=== PATIENT | female | born 1995 | race Hispanic/Latino ===

== ENCOUNTER 2019-11-05 15:18 | Emergency (ER) | payer OTHER ==
[2019-11-05] MEDS ORDERED: KETOROLAC TROMETHAMINE 30MG/ML ONE (16:04)
[2019-11-05] MEDS ORDERED: SODIUM CHLORIDE 0.9% 1000ML 1,000 ML IV ONE (16:04)
[2019-11-05] MEDS ORDERED: ONDANSETRON HCL 4 MG/2 ML VIAL ONE (16:04)
[2019-11-05 16:12] LABS: BASOPHILS % (AUTO) 0.4 % (0.0-5.0); EOSINOPHILS % (AUTO) 1.2 % (0.0-8.0); HEMATOCRIT 34.2 % (36-48); LYMPHOCYTES % (AUTO) 19.1 % (21.0-51.0); MEAN CORPUSCULAR HEMOGLOBIN 29.3 pg (27.0-33.0); MEAN CORPUSCULAR VOLUME 88.6 fL (79-99); MONOCYTES % (AUTO) 5.3 % (3.0-13.0); NEUTROPHILS % (AUTO) 73.7 % (40.0-77.0); PLATELET COUNT (AUTO) 317 K/uL (130-400); RED BLOOD CELL COUNT(AUTO) 3.86 MIL/uL (4.00-5.50); RED CELL DISTRIBUTION WIDTH 13.2 % (11.0-15.5); WHITE BLOOD COUNT (AUTO) 9.1 K/uL (4.8-10.8)
[2019-11-05 16:28] LABS: APPEARANCE,URINE Turbid (CLEAR); BILIRUBIN,URINE Negative (NEGATIVE); COLOR,URINE Dark Yellow (YELLOW); GLUCOSE, URINE (UA) Negative (NEGATIVE); KETONES,URINE >=80 mg/dL (NEGATIVE); LEUKOCYTE ESTERASE ,URINE Trace (NEGATIVE); NITRATE,URINE Negative (NEGATIVE); OCCULT BLOOD,URINE Negative (NEGATIVE); PH,URINE 7.5 (5.0-8.0); PROTEIN,URINE Trace mg/dL (NEGATIVE)
[2019-11-05 16:29] LABS: HCG,QUAL RESULT POSITIVE (NEGATIVE)
[2019-11-05 16:36] LABS: AMPHET/METH SCREEN,URINE NEGATIVE (NEGATIVE); BARBITURATE SCREEN, URINE NEGATIVE (NEGATIVE); BENZODIAZEPINES SCREEN,URINE NEGATIVE (NEGATIVE); CANNABINOID SCREEN,URINE POSITIVE (NEGATIVE); COCAINE SCREEN,URINE NEGATIVE (NEGATIVE); OPIATE SCREEN,URINE NEGATIVE (NEGATIVE); PHENCYCLIDINE SCREEN,URINE NEGATIVE (NEGATIVE)
[2019-11-05 16:44] LABS: CREATININE 0.5 mg/dL (0.5-1.5); POTASSIUM 3.7 mmol/L (3.5-5.1)
[2019-11-05 16:45] LABS: AMORPHOUS SEDIMENT,UR Many /LPF (None Seen); MUCUS,URINE Many LPF (None Seen); RBC,URINE None Seen /HPF (0-1)
[2019-11-05 16:46] LABS: BACTERIA,URINE Few /HPF (None Seen)
[2019-11-05 16:54] LABS: ALBUMIN 3.4 g/dL (3.5-5.0); BILIRUBIN,DIRECT 0.1 mg/dL (0.0-0.3); BILIRUBIN,TOTAL 0.3 mg/dL (0.2-1.0); TOTAL PROTEIN, SERUM 7.3 g/dL (6.0-8.3)
== END 2019-11-05 19:06 | disposition home or self-care (01) ==
LOC: EDH 15:18
DX: O26.891 Other specified pregnancy related conditions, first trimester (principal); R55 Syncope and collapse; O21.9 Vomiting of pregnancy, unspecified; Z3A.10 10 weeks gestation of pregnancy
CPT/HCPCS: 36415; 76801; 80048; 80076; 80305; 81001; 81025; 82550; 83690; 84702; 85025; 93005; 96361; 96374; 99285; J1885; J2405; J7030

== ENCOUNTER 2020-05-22 22:00 | Observation (INO) | payer MEDICAID ==
[~2020-05-22] VITALS: Ht 157.5 cm; Wt 67.6 kg
[2020-05-22 22:33] LABS: APPEARANCE,URINE Clear (CLEAR); BILIRUBIN,URINE Negative (NEGATIVE); COLOR,URINE Yellow (YELLOW); GLUCOSE, URINE (UA) Negative (NEGATIVE); KETONES,URINE Negative (NEGATIVE); LEUKOCYTE ESTERASE ,URINE Moderate (NEGATIVE); NITRATE,URINE Negative (NEGATIVE); OCCULT BLOOD,URINE Negative (NEGATIVE); PH,URINE 7.5 (5.0-8.0); PROTEIN,URINE Negative (NEGATIVE)
[2020-05-22 22:53] LABS: RBC,URINE 0-1 /HPF (0-1)
[2020-05-22 22:54] LABS: BACTERIA,URINE Rare /HPF (None Seen)
[2020-05-22 23:05] VITALS: BP 107/71
[2020-05-22 23:27] LABS: AMPHET/METH SCREEN,URINE NEGATIVE (NEGATIVE); BARBITURATE SCREEN, URINE NEGATIVE (NEGATIVE); BENZODIAZEPINES SCREEN,URINE NEGATIVE (NEGATIVE); CANNABINOID SCREEN,URINE NEGATIVE (NEGATIVE); COCAINE SCREEN,URINE NEGATIVE (NEGATIVE); OPIATE SCREEN,URINE NEGATIVE (NEGATIVE); PHENCYCLIDINE SCREEN,URINE NEGATIVE (NEGATIVE)
== END 2020-05-23 01:10 | disposition home or self-care (01) ==
LOC: EDH 22:00 → LDH 22:01
PROVIDERS: ADMIT Obstetrics & Gynecology; ATTEND Obstetrics & Gynecology
DX: O62.9 Abnormality of forces of labor, unspecified (principal); O42.92 Full-term premature rupture of membranes, unspecified as to length of time between rupture and onset of labor; Z3A.38 38 weeks gestation of pregnancy
CPT/HCPCS: 59025; 80305; 81001; 87088; 99284; G0378 ×3

== ENCOUNTER 2020-05-26 00:05 | Inpatient (IN) | payer MEDICAID ==
[2020-05-26] MEDS ORDERED: LACTATED RINGERS 1000ML 1,000 ML IV PRN (00:41)
[2020-05-26 00:47] LABS: APPEARANCE,URINE Cloudy (CLEAR); BILIRUBIN,URINE Negative (NEGATIVE); COLOR,URINE Yellow (YELLOW); GLUCOSE, URINE (UA) Negative (NEGATIVE); KETONES,URINE Negative (NEGATIVE); LEUKOCYTE ESTERASE ,URINE Moderate (NEGATIVE); NITRATE,URINE Negative (NEGATIVE); OCCULT BLOOD,URINE Negative (NEGATIVE); PROTEIN,URINE Negative (NEGATIVE); UROBILINOGEN,URINE 0.2 mg/dL (0.2-1.0)
[2020-05-26 01:07] LABS: BACTERIA,URINE Few /HPF (None Seen); RBC,URINE None Seen /HPF (0-1); SQUAMOUS EPITHELIAL CELL,UR Moderate /HPF (0-2)
[2020-05-26] MEDS ORDERED: NALOXONE HCL 0.4 MG/1 ML ML IV PRN (01:30)
[2020-05-26] MEDS ORDERED: EPHEDRINE SULFATE 50 MG/ML AMPULE IVP PRN (01:30)
[2020-05-26] MEDS ORDERED: ROPIVACAINE 0.2% 100ML VIAL 100 ML EP SCH (01:30)
[2020-05-26] MEDS ORDERED: LACTATED RINGERS 500 ML 500 ML IV PRN (01:30)
[2020-05-26 01:48] LABS: HEMATOCRIT 39.9 % (36-48); MEAN CORPUSCULAR HEMOGLOBIN 30.7 pg (27.0-33.0); MEAN CORPUSCULAR HGB CONC 33.8 g/dL (32.0-36.0); MEAN CORPUSCULAR VOLUME 90.7 fL (79-99); RED BLOOD CELL COUNT(AUTO) 4.4 MIL/uL (4.00-5.50); RED CELL DISTRIBUTION WIDTH 13.2 % (11.0-15.5); WHITE BLOOD COUNT (AUTO) 12.6 K/uL (4.8-10.8)
[2020-05-26] MEDS ORDERED: OXYTOCIN-LR 20 UNITS/1000 ML 1,000 ML IV ONE ×2 (06:05→12:21)
[2020-05-26 06:27] LABS: AMPHET/METH SCREEN,URINE NEGATIVE (NEGATIVE); BARBITURATE SCREEN, URINE NEGATIVE (NEGATIVE); BENZODIAZEPINES SCREEN,URINE NEGATIVE (NEGATIVE); CANNABINOID SCREEN,URINE NEGATIVE (NEGATIVE); COCAINE SCREEN,URINE NEGATIVE (NEGATIVE); OPIATE SCREEN,URINE NEGATIVE (NEGATIVE); PHENCYCLIDINE SCREEN,URINE NEGATIVE (NEGATIVE)
[2020-05-26] MEDS ORDERED: PREN-154 PO (07:20)
[2020-05-26] MEDS ORDERED: VALA500T PO (07:20)
[2020-05-26] MEDS ORDERED: FERR-82 PO (07:20)
[2020-05-26] MEDS ORDERED: CEFAZOLIN SODIUM 1 GM VIAL ONE (11:42)
[2020-05-26] MEDS ORDERED: ACETAMINOPHEN 325 MG TAB PO PRN (12:00)
[2020-05-26] MEDS ORDERED: LANOLIN 30GM OINTMENT TP PRN (12:00)
[2020-05-26] MEDS ORDERED: MEASLES/MUMPS/RUBELLA VACCINE, LIVE 0.5 ML/VIAL SQ PRN (12:00)
[2020-05-26] MEDS ORDERED: ACETAMINOPHEN-CODEINE 300/30MG TAB PO PRN (12:00)
[2020-05-26] MEDS ORDERED: WITCH HAZEL 1 PAD TP PRN (12:00)
[2020-05-26] MEDS ORDERED: DIPH,PERTUSS(ACELL),TET VAC/PF 0.5 ML VIAL IM PRN (12:00)
[2020-05-26] MEDS ORDERED: BENZOCAINE/LANOLIN/ALOE VERA 60 ML AEROSOL TP PRN (12:00)
[2020-05-26] MEDS ORDERED: OXYTOCIN-LR 20 UNITS/1000 ML 1,000 ML IV SCH (12:00)
--- NOTE | 2020-05-26 12:20 | NUR ---
ADMIT: RECEIVED FROM ER VIA STRETCHER TO 116, TRANSFERRED TO BED, MADE COMFORTABLE. CALL MCNAMARA AT HER SIDE. IV FLUIDS INF WELL. HAVING EMESIS OF CL FLUIDS, ASSISSTED WITH MOUTH CARE. LIGHTS DIMMED. Addendum: 05/26/20 at 1226 by MCKAYLA WAGONER LVN LVN INADVERTENTLY DOCUMENTED ON WRONG PT.
[2020-05-26 13:50] VITALS: BP 104/64
--- NOTE | 2020-05-26 13:50 | NUR ---
ASSESSMENT: RECEIVED FROM L&D VIA BED TO 114, MADE COMFORTABLE. CALL MCNAMARA AT HER SIDE. EXPLAINED POC AND UNDERSTANDING VERBALIZED, INSTRUCTED ON FUNDAL MASSAGE AND RETURNED DEMONSTRATION.
--- NOTE | 2020-05-26 14:00 | NUR ---
4TH DEGREE LACERATION: FRESH ICE PACK TO PERINEUM. NO SWELING NOTED.
[2020-05-26 16:22] VITALS: BP 98/64
[2020-05-26] MEDS: IBUPROFEN 600 MG TABLET PO PRN (16:59)
--- NOTE | 2020-05-26 17:03 | NUR ---
ELIMINATION: AMB TO BR, STEADY GAIT, VOIDED LG AMTS OF URINE. INSTRUCTED ON MARIBEL CARE AND RETURNED DEMONSTRATION.
--- NOTE | 2020-05-26 17:18 | NUR ---
NUTRITION:UP IN CHAIR, EATING DINNER. HOLDING BABY.
[2020-05-26 19:30] VITALS: BP 91/44
[2020-05-26] MEDS: DOCUSATE SODIUM 100 MG CAP PO SCH (21:09)
[2020-05-26 23:37] VITALS: BP 96/65
[2020-05-27 03:13] VITALS: BP 109/76
[2020-05-27 07:29] VITALS: BP 111/66
[2020-05-27] MEDS: DOCUSATE SODIUM 100 MG CAP PO SCH (10:25)
[2020-05-27] MEDS: IBUPROFEN 600 MG TABLET PO PRN (10:25)
[2020-05-27 11:10] VITALS: BP 98/68
--- NOTE | 2020-05-27 11:55 | NUR ---
TRIGGER UDS CM VISITED WITH PATIENT DUE TO HOLIDAY PAPER REWINDER OUT. PATIENT HAD BEEN POSITIVE FOR MARIJUANA IN NOVEMBER. SAID ONCE SHE FOUND OUT SHE WAS STOPPED. UDS FOR DELIVERY SAID NEGATIVE. GAVE LITERATURE FOR COMMUNITY RESOURCES, DRUG ABUSE PACKET GIVEN WITH RESOURCES AVAILABLE. VERBALIZED UNDERSTANDING SAID DOING GOOD AT THIS TIME HAS GREAT SUPPORT. Addendum: 05/27/20 at 1159 by AALIYAH ALFARO RN CM Amended: Links added.
--- NOTE | 2020-05-27 13:15 | NUR ---
DISCHARGE PT LEFT UNIT VIA WHEELCHAIR, WITH BABY IN ARMS, ACCOMPANIED BY SIGNIFICANT OTHER. DENIED PAIN AND HAD NO COMPLAINTS. BABY STRAPPED IN CAR SEAT. PT AND BABY TRANSPORTED BY PERSONAL VEHICLE.
[2020-05-28 16:09] LABS: HEPATITIS Bs ANTIGEN SCREEN P Negative (Negative)
== END 2020-05-27 13:15 | disposition home or self-care (01) | DRG 560 ==
LOC: EDH 00:05 → LDH 00:06 → OBSVTOIN 00:06 → WSH 13:45
PROVIDERS: ADMIT Obstetrics & Gynecology; ATTEND Obstetrics & Gynecology
PROC: 10D07Z6 Extraction of Products of Conception, Vacuum, Via Natural or Artificial Opening (ICD-10-PCS; principal; 2020-05-26)
PROC: 3E0R3BZ Introduction of Anesthetic Agent into Spinal Canal, Percutaneous Approach (ICD-10-PCS; 2020-05-26)
PROC: 00HU33Z Insertion of Infusion Device into Spinal Canal, Percutaneous Approach (ICD-10-PCS; 2020-05-26)
PROC: 0W8NXZZ Division of Female Perineum, External Approach (ICD-10-PCS; 2020-05-26)
PROC: 3E0234Z Introduction of Serum, Toxoid and Vaccine into Muscle, Percutaneous Approach (ICD-10-PCS; 2020-05-26)
PROC: 3E0134Z Introduction of Serum, Toxoid and Vaccine into Subcutaneous Tissue, Percutaneous Approach (ICD-10-PCS; 2020-05-26)
DX: O76 Abnormality in fetal heart rate and rhythm complicating labor and delivery (principal); O69.1XX0 Labor and delivery complicated by cord around neck, with compression, not applicable or unspecified; O98.32 Other infections with a predominantly sexual mode of transmission complicating childbirth; Z37.0 Single live birth; Z23 Encounter for immunization; Z3A.39 39 weeks gestation of pregnancy
CPT/HCPCS: 36415; 80305; 81001; 85027; 86592; 86850; 86900; 86901; 87340; 90707; A4314; A4606; G0378; J0690; J2590; J2795; J7120